=== PATIENT | male | born 1975 | race African-American/Black ===

== ENCOUNTER 2024-10-30 16:55 | Emergency (ER) | payer OTHER ==
[~2024-10-30] VITALS: Ht 188 cm; Wt 136.0 kg
[2024-10-30 17:07] VITALS: O2SAT 100
[2024-10-30 17:56] LABS: BASOPHILS % 0.6 % (0.0-2.0); DIFFERENTIAL COMMENT 0; EOSINOPHILS % 1.2 % (0.0-5.0); HEMATOCRIT. 38.6 % (42.0-52.0); HEMOGLOBIN. 12.6 g/dL (14.0-18.0); LYMPHOCYTES % 17.2 % (20.0-50.0); MEAN CORPUSCULAR HEMOGLOBIN 30.7 pg (28.0-32.0); MEAN CORPUSCULAR HGB CONC 32.6 g/dL (31.0-37.0); MEAN CORPUSCULAR VOLUME 94.3 fL (80.0-94.0); MEAN PLATELET VOLUME 11.7 fl (7.4-10.4); MONOCYTES % 6.6 % (2.0-8.0); NEUTROPHILS % 74.4 % (40.0-76.0); PLATELET 177 x1000/uL (130-400); RED BLOOD CELL COUNT 4.09 mill/uL (4.7-6.1); RED CELL DISTRIBUTION WIDTH 13.7 % (11.6-14.6); WHITE BLOOD COUNT 8.9 x1000/uL (4.5-11.0)
[2024-10-30 18:13] LABS: TROPONIN I HIGH SENSITIVITY 48 ng/L (3.0-53)
[2024-10-30 19:31] LABS: CHLORIDE 106 mEq/L (98-107); POTASSIUM 3.4 mEq/L (3.5-5.1); SODIUM 142 mEq/L (136-145)
[2024-10-30 19:32] LABS: CARBON DIOXIDE 27 mEq/L (21-32)
[2024-10-30 19:33] LABS: CALCIUM 9.4 mg/dL (8.7-10.4)
[2024-10-30 19:38] LABS: CREATININE 1.2 mg/dL (0.6-1.3); GLUCOSE 90 mg/dL (70-105); TROPONIN I HIGH SENSITIVITY 45 ng/L (3.0-53); UREA NITROGEN BLOOD 11 mg/dL (9-23)
[2024-10-30 19:48] LABS: PARTIAL THROMBOPLASTIN TIME 25.4 sec (23.4-31.0)
[2024-10-30] MEDS: LISINOPRIL 20MG TABLET PO ONE (20:00)
[2024-10-30] MEDS: NITROGLYCERIN 0.4MG TABLET SL SL ONE (20:01)
[2024-10-30] MEDS: MORPHINE SULFATE 4 MG/ML INJ (FOR IV/IM USE) IV ONE (20:01)
[2024-10-30 21:28] LABS: CLARITY URINE CLOUDY (CLEAR); COLOR URINE DARK YELLOW (YELLOW); GLUCOSE URINE NEGATIVE (NEGATIVE); KETONES URINE TRACE (NEGATIVE); LEUKOCYTE ESTERASE URINE NEGATIVE (NEGATIVE); NITRITE URINE NEGATIVE (NEGATIVE); OCCULT BLOOD URINE NEGATIVE (NEGATIVE); PH URINE 8.5 (4.5-8.0); PROTEIN URINE 1+ (NEGATIVE); SPECIFIC GRAVITY URINE 1.025 (1.005-1.030)
[2024-10-30 22:04] LABS: TROPONIN I HIGH SENSITIVITY 48 ng/L (3.0-53)
[2024-10-30 22:43] VITALS: BP 148/74; PULSE 52; RESP 15; TEMP 36.8; O2SAT 99
[2024-10-31 00:01] LABS: BACTERIA URINE TRACE; RBC URINE 0-2 /hpf (0-2); SQUAMOUS EPITHELIAL CELL URINE 1+ /lpf (RARE/1+); WBC URINE 0-2 /hpf (0-2)
== END 2024-10-31 01:17 | disposition short-term general hospital (02) ==
LOC: ER 17:04
DX: R07.89 Other chest pain (principal); E11.9 Type 2 diabetes mellitus without complications; I11.0 Hypertensive heart disease with heart failure; I50.9 Heart failure, unspecified; E78.5 Hyperlipidemia, unspecified
CPT/HCPCS: 80048; 81003; 83880; 85025; 85610; 85730; 84484; 36415; 71045; 93005; 96374; 99285; J2270; Z7610